=== PATIENT | female | born 1995 | race Caucasian/White ===

== ENCOUNTER 2018-04-30 15:54 | Emergency (ER) | payer SELFPAY ==
[~2018-04-30] VITALS: Ht 152.4 cm; Wt 66.7 kg
[2018-04-30 16:30] VITALS: Ht 152.4 cm; Wt 66.7 kg
[2018-04-30 17:55] VITALS: BP 137/93
== END 2018-04-30 17:55 | disposition home or self-care (01) ==
LOC: ED 15:54
DX: J06.9 Acute upper respiratory infection, unspecified (principal); R03.0 Elevated blood-pressure reading, without diagnosis of hypertension; Z88.6 Allergy status to analgesic agent